=== PATIENT | female | born 1985 ===

== ENCOUNTER 2017-07-22 14:41 | Emergency (ER) | payer MEDICAID ==
[2017-07-22 14:51] VITALS: BMI 25.4
[2017-07-22 14:54] VITALS: RESP 18; O2SAT 100
[2017-07-22 16:10] LABS: HCG,QUALITATIVE URINE NEGATIVE (NEGATIVE)
[2017-07-22 16:15] LABS: SQUAMOUS EPITHIAL 2 /hpf (0-5); URINE BACTERIA OCC (<OCC); URINE BILIRUBIN NEGATIVE (NEGATIVE); URINE BLOOD 3+ (NEGATIVE); URINE CLARITY Hazy (Clear); URINE COLOR Yellow (YELLOW); URINE GLUCOSE (UA) NORMAL (Normal); URINE PROTEIN 1+ mg/dL (NEGATIVE); URINE UROBILINOGEN NORMAL mg/dL (0.2-1.0)
[2017-07-22 16:16] LABS: URINE LEUKOCYTE ESTERASE 2+ Leu/uL (Negative)
[2017-07-22] MEDS ORDERED: Sodium Chloride 0.9% 1,000 ML IV ONE (16:18)
[2017-07-22] MEDS ORDERED: Sodium Chloride 0.9% 1,000 ML ONE (16:38)
--- NOTE | 2017-07-22 16:42 | C.PDOC ---
History Of Present Illness 32 y/o female with hx GERD c/o lower abdominal cramps with menses today, that are worse much than usual. pt also c/o nausea, vomiting and diarrhea, sts she usually gets this with her menses. pt took 800 mg advil at 12 am with no decrease in pain. no fever or chills, no urinary symptoms. Time Seen by Provider: 07/22/17 15:49 Chief Complaint (Nursing): Female Genitourinary History Per: Patient History/Exam Limitations: no limitations Onset/Duration Of Symptoms: Days Quality Of Discomfort: Cramping Past Medical History Reviewed: Historical Data, Nursing Documentation, Vital Signs Vital Signs: Last Vital Signs Temp 98.3 F 07/22/17 17:23 Pulse 91 H 07/22/17 17:23 Resp 18 07/22/17 17:23 BP 109/73 07/22/17 17:23 Pulse Ox 100 07/22/17 17:23 - Medical History PMH: Anxiety, Gastritis, Kidney Stones, Chronic Kidney Disease, Chronic Pain ( neck) Surgical History: No Surg Hx - [facility] Procedures BILAT TUBAL DIVISION NEC (09/18/12) LOW CERVICAL (09/18/12) OTH LYSIS-PERITONEAL ADHES (09/18/12) Family History: States: No Known Family Hx - Social History Hx Tobacco Use: Yes Hx Alcohol Use: No Hx Substance Use: No - Immunization History Hx Tetanus Toxoid Vaccination: No Hx Influenza Vaccination: No Hx Pneumococcal Vaccination: No Review Of Systems Constitutional: Negative for: Fever, Chills Gastrointestinal: Positive for: Vomiting, Abdominal Pain, Diarrhea. Negative for: Nausea Genitourinary: Negative for: Dysuria, Hematuria Physical Exam - Physical Exam Appears: Non-toxic, No Acute Distress Skin: Warm, Dry, No Rash Head: Atraumatic, Normacephalic Eye(s): bilateral: Normal Inspection Oral Mucosa: Moist Neck: Normal ROM, Supple Cardiovascular: Rhythm Regular Respiratory: Normal Breath Sounds, No Rales, No Rhonchi, No Wheezing Gastrointestinal/Abdominal: Soft, Tenderness (low abdominal), No Guarding, No Rebound Back: No CVA Tenderness Extremity: Normal ROM, Capillary Refill (<2 seconds) Neurological/Psych: Oriented x3 ED Course And Treatment - Laboratory Results Result Diagrams: 07/22/17 16:38 07/22/17 16:38 O2 Sat by Pulse Oximetry: 100 (RA) Pulse Ox Interpretation: Normal Medical Decision Making Medical Decision Making: pt reports she is unable to stay, needs to leave ED due to childcare issues. pt advised since leaving before treatment complete, will be ama. pt understands. pt has no urinary symptoms at this time, will not treat for uti, will f/u culture. will d/c pt with bentyl and tylenol. 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 pt understands risks and consequences of leaving ama. Disposition Counseled Patient/Family Regarding: Studies Performed, Diagnosis, Need For Followup - Disposition Referrals: [facility] [Outside] Disposition: AGAINST MEDICAL ADVICE Disposition Time: 17:13 Condition: STABLE Additional Instructions: Please take medications as prescribed. Avoid advil- not good for your GERD. FOllow up with clutch specialist ([facility]) as soon as possible. Return to ER for any worsening symptoms. 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 - Scribe Statement The provider has reviewed the documentation as recorded by the Corinne Ramires All medical record entries made by the Corinne were at my direction and personally dictated by me. I have reviewed the chart and agree that the record accurately reflects my personal performance of the history, physical exam, medical decision making, and the department course for this patient. I have also personally directed, reviewed, and agree with the discharge instructions and disposition.
[2017-07-22 16:43] LABS: BASO # 0.1 K/uL (0.0-0.2); BASO % 0.7 % (0.0-2.0); EOS # 0.3 K/uL (0.0-0.7); EOS % 2.1 % (0.0-4.0); HEMOGLOBIN 12.7 g/dL (11.0-16.0); LYMPH # 2.9 K/uL (1.0-4.3); LYMPH % 20.6 % (20.0-40.0); MEAN CELL VOLUME 95.5 fL (81.0-99.0); MEAN CORPUSCULAR HEMOGLOBIN 32.8 pg (27.0-31.0); MEAN CORPUSCULAR HGB CONC 34.3 g/dL (33.0-37.0); MEAN PLATELET VOLUME 6.8 fL (7.2-11.7); MONO # 0.7 K/uL (0.0-0.8); MONO % 4.8 % (0.0-10.0); NEUT % 71.8 % (50.0-75.0); NRBC % 0.2 % (0.0-2.0); RBC 3.87 Mil/uL (3.80-5.20); RED CELL DISTRIBUTION WIDTH 13.9 % (11.5-14.5); WHITE BLOOD COUNT 13.9 K/uL (4.8-10.8)
[2017-07-22 16:53] LABS: ALB/GLOB RATIO 1.5 (1.0-2.1); ALBUMIN 4.6 g/dL (3.5-5.0); ALT/SGPT 22 U/L (9-52); AST/SGOT 19 U/L (14-36); BLOOD UREA NITROGEN 15 mg/dL (7-17); CALCIUM 8.9 mg/dl (8.6-10.4); GFR AFRICAN-AMERICAN > 60; GFR NON-AFRICAN AMERICAN > 60
[2017-07-22 17:25] VITALS: BP 109/73; PULSE 91; TEMP 98.3
== END 2017-07-22 17:25 | disposition left against medical advice (07) ==
LOC: C.ER 14:41
DX: R10.30 Lower abdominal pain, unspecified (principal); N94.6 Dysmenorrhea, unspecified
CPT/HCPCS: 80053; 81001; 84703; 85025; 87086; 96361; 96374; 96375; 99285; J2765; J7040

== ENCOUNTER 2018-05-18 19:31 | Emergency (ER) | payer MEDICAID ==
[2018-05-18 19:31] VITALS: BMI 25.4
[2018-05-18] MEDS ORDERED: Sodium Chloride 0.9% 1,000 ML IV ONE (20:46)
[2018-05-18] MEDS ORDERED: Sodium Chloride 0.9% 1,000 ML ONE (21:10)
--- NOTE | 2018-05-18 21:24 | C.PDOC ---
History Of Present Illness 33 y/o female presents to the ED complaining of colicky abdominal pain that began 30 minutes prior to arrival. Patient has had many prior evaluations for the same. Prior surgical history includes tubal ligation. Otherwise patient den ies any vaginal discharge, vaginal bleeding, fevers, chills, vomiting, or diarrhea. Time Seen by Provider: 05/18/18 20:39 Chief Complaint (Nursing): Abdominal Pain History Per: Patient History/Exam Limitations: no limitations Onset/Duration Of Symptoms: Mins (30) Current Symptoms Are (Timing): Still Present Quality Of Discomfort: Cramping Past Medical History Reviewed: Historical Data, Nursing Documentation, Vital Signs Vital Signs: Last Vital Signs Temp 98.6 F 05/18/18 19:55 Pulse 96 H 05/18/18 19:55 Resp 20 05/18/18 19:55 BP 124/73 05/18/18 19:55 Pulse Ox 95 05/18/18 19:55 - Medical History PMH: Anxiety, Gastritis, Kidney Stones, Chronic Kidney Disease, Chronic Pain (neck) - [facility] Procedures BILAT TUBAL DIVISION NEC (09/18/12) LOW CERVICAL (09/18/12) OTH LYSIS-PERITONEAL ADHES (09/18/12) Family History: States: Unknown Family Hx - Social History Hx Tobacco Use: Yes Hx Alcohol Use: No Hx Substance Use: No - Immunization History Hx Tetanus Toxoid Vaccination: No Hx Influenza Vaccination: No Hx Pneumococcal Vaccination: No Review Of Systems Constitutional: Negative for: Fever, Chills Cardiovascular: Negative for: Chest Pain Respiratory: Negative for: Shortness of Breath Gastrointestinal: Positive for: Abdominal Pain. Negative for: Vomiting, Diarrhea, Hematochezia Genitourinary: Negative for: Dysuria, Frequency, Incontinence Neurological: Negative for: Weakness, Dizziness Physical Exam - Physical Exam Appears: Non-toxic, No Acute Distress Skin: Warm, Dry Head: Atraumatic, Normacephalic Eye(s): bilateral: PERRL, EOMI, Other (Dilated pupils, denies narcotic use) Oral Mucosa: Moist Neck: Normal ROM Chest: Symmetrical Cardiovascular: Rhythm Regular, No Murmur Respiratory: Normal Breath Sounds, No Accessory Muscle Use Gastrointestinal/Abdominal: Bowel Sounds (alternatingly dull and tympanic to percussion), Soft, No Tenderness, Other (Obese abdomen) Back: Normal Inspection Extremity: Bilateral: Atraumatic, Normal Color And Temperature Pulses: Left Dorsalis Pedis: Normal, Right Dorsalis Pedis: Normal Neurological/Psych: Oriented x3 ED Course And Treatment - Laboratory Results Result Diagrams: 05/18/18 21:32 05/18/18 21:32 Lab Interpretation: Abnormal (leukocytosis not L shifted- tox + cocaine, opiates, THC) Urine POC: Negative O2 Sat by Pulse Oximetry: 95 (RA) Pulse Ox Interpretation: Normal Reevaluation Time: 23:55 Reassessment Condition: Improved Medical Decision Making Medical Decision Making: Initial Plan: --Labs --Obstructive series x-ray --IV fluids --30 mg IV Toradol abd colic due to increased intestinal gas, prob related to chronic narcotics use Leukocytosis 21K not L shifted prob related to cocaine abuse and explains pupilary mydriasis [place]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 Disposition Doctor Will See Patient In The: Office Counseled Patient/Family Regarding: Studies Performed, Diagnosis - Disposition Referrals: Alcoholics Anonymous [Outside] [facility] [Outside] [facility] [Outside] [facility] [Outside] [facility] [Outside] Disposition: HOME/ ROUTINE Disposition Time: 23:56 Condition: GOOD Additional Instructions: constipation may be related to your chronic narcotics use (Tylenol #3) Drink laxative now- bottle of Mag Citrate- and re-evaluate your abdominal discomfort after 2-3 bowel movements Consider stool softners and occasional laxatives Leukocytosis (elevated white blood cell count) probably related to your cocaine use avoid cocaine use Seek counseling/detox CT of abd/pelvic unremarkable Instructions: Constipation in Adults Forms: [employer] (Swedish) - Clinical Impression Clinical Impression: Abdominal pain, colicky - Scribe Statement The provider has reviewed the documentation as recorded by the Corinne Adam Provider Attestation: All medical record entries made by the Edithibfran were at my direction and personally dictated by me. I have reviewed the chart and agree that the record accurately reflects my personal performance of the history, physical exam, medical decision making, and the department course for this patient. I have also personally directed, reviewed, and agree with the discharge instructions and disposition.
[2018-05-18 21:40] LABS: BASO # 0.1 K/uL (0.0-0.2); BASO % 0.6 % (0.0-2.0); EOS # 0.8 K/uL (0.0-0.7); EOS % 3.8 % (0.0-4.0); HEMOGLOBIN 12.8 g/dL (11.0-16.0); LYMPH # 3.4 K/uL (1.0-4.3); LYMPH % 16.4 % (20.0-40.0); MEAN CELL VOLUME 96.1 fL (81.0-99.0); MEAN CORPUSCULAR HEMOGLOBIN 32.3 pg (27.0-31.0); MEAN CORPUSCULAR HGB CONC 33.6 g/dL (33.0-37.0); MEAN PLATELET VOLUME 7.2 fL (7.2-11.7); MONO # 1.1 K/uL (0.0-0.8); MONO % 5.2 % (0.0-10.0); NEUT # 15.5 K/uL (1.8-7.0); RBC 3.96 Mil/uL (3.80-5.20); RED CELL DISTRIBUTION WIDTH 13.1 % (11.5-14.5)
[2018-05-18 21:49] LABS: ALB/GLOB RATIO 1.5 (1.0-2.1); ALBUMIN 4.9 g/dL (3.5-5.0); ALT/SGPT 12 U/L (9-52); AST/SGOT 19 U/L (14-36); BLOOD UREA NITROGEN 10 mg/dL (7-17); CALCIUM 9.4 mg/dl (8.6-10.4); GFR NON-AFRICAN AMERICAN > 60; LIPASE 114 U/L (23-300)
[2018-05-18 21:55] LABS: BARBITURATES, UR NEGATIVE (NEGATIVE); PHENCYCLIDINE, UR NEGATIVE (NEGATIVE)
[2018-05-18 21:56] LABS: SQUAMOUS EPITHIAL 2 /hpf (0-5); URINE BACTERIA RARE (<OCC); URINE BILIRUBIN NEGATIVE (NEGATIVE); URINE BLOOD NEGATIVE (NEGATIVE); URINE CLARITY Clear (Clear); URINE COLOR Yellow (YELLOW); URINE GLUCOSE (UA) NORMAL (Normal); URINE LEUKOCYTE ESTERASE NEG Leu/uL (Negative); URINE PROTEIN NEGATIVE (NEGATIVE); URINE UROBILINOGEN NORMAL mg/dL (0.2-1.0)
[2018-05-18 21:57] LABS: BENZODIAZEPINES, UR POSITIVE (NEGATIVE); HCG,QUALITATIVE URINE NEGATIVE (NEGATIVE); OPIATES, UR POSITIVE (NEGATIVE)
[2018-05-18] MEDS ORDERED: Iohexol 300 100 ML IJ ONE (22:31)
[2018-05-18] MEDS ORDERED: Magnesium Citrate Oral SOL (300 ml) PO ONE (23:59)
[2018-05-19] MEDS ORDERED: Magnesium Citrate Oral SOL (300 ml) ONE (00:17)
[2018-05-19 00:18] VITALS: BP 114/74; PULSE 78; RESP 17; TEMP 98.2; O2SAT 98
--- NOTE | 2018-05-19 08:17 | RAD ---
Date of service: 05/18/2018 PROCEDURE: Radiographs of the chest and abdomen (obstructive series) HISTORY: abd pain COMPARISON: No prior. TECHNIQUE: AP radiograph of the chest, with upright and supine radiographs of the abdomen. FINDINGS: CHEST: Lungs: Clear. Cardiovascular: Normal size heart. No pulmonary vascular congestion. No aortic atherosclerotic calcification present Pleura: No pleural fluid. No pneumothorax. Other findings: None. ABDOMEN AND PELVIS: Bowel: Right colonic stool retention present. Some of the left upper abdominal quadrant colon loops are intermittently more distended than typically seen. However. No evidence of mechanical obstruction. Free air: None. Bones: This amorphous sclerosis of each SI joint border noted Other findings: Bilateral hemipelvic phleboliths. IMPRESSION: No pulmonary infiltrate. No mechanical bowel obstruction. Pockets of minimally prominent splenic colon loops-not constant on all of the images. Right sided cyst stool retention. Other findings as above.
--- NOTE | 2018-05-19 09:19 | CT ---
CT abdomen and pelvis HISTORY: Abdominal pain. COMPARISON: None available. TECHNIQUE: Multiple contiguous axial images were performed through the abdomen and pelvis with the use of intravenous contrast. Subsequently, sagittal and coronal reformatted images were obtained. This CT exam was performed using one or more of the following dose reduction techniques: Automated exposure control, adjustment of the mA and/or kV according to patient size, and/or use of iterative reconstruction technique. Findings: Mild atelectasis at the lung bases. No pleural or pericardial effusion. Liver and gallbladder are preserved. Spleen is preserved. Adrenal glands are preserved. Pancreas is preserved. Upper abdominal bowel is preserved. Right kidney: No calculi or hydronephrosis. Left Kidney: No calculi or hydronephrosis. Urinary bladder is preserved. Heterogeneous uterus. Prominence of the left adnexa measuring up to 3.4 centimeters with enhancing cyst measuring 1.7 centimeters. Under distended descending colon. Fecal retention in the right hemicolon. Appendix is within normal limits. Few shotty para-aortic and inguinal nodes. Few shotty mesenteric lymph nodes. Degenerative changes in the spine. Tiny fat containing umbilical hernia. Impression: Negative acute. Prominence of the left adnexa measuring up to 3.4 centimeters. Clinical correlation. Appendix appears preserved. A preliminary report was generated at 11:26 p.m. on 05/18/[address] Nahid Ferrara from [employer].
== END 2018-05-19 00:17 | disposition home or self-care (01) ==
LOC: C.ER 19:31
DX: R10.84 Generalized abdominal pain (principal)
CPT/HCPCS: 74022; 74177; 80053; 80320; 80324; 80345; 80346; 80349; 80353; 80358; 80361; 81001; 83690; 83992; 84703; 85025; 96361; 96374; 99284; J1885; J7030; Q9967

== ENCOUNTER 2018-07-02 00:25 | Emergency (ER) | payer MEDICAID ==
[2018-07-02 00:25] VITALS: BMI 25.4
--- NOTE | 2018-07-02 01:09 | C.PDOC ---
History Of Present Illness 33 year old female presents with fever, body aches, runny nose, nonproductive cough, and sore throat since yesterday night. Patient has an appointment scheduled in the morning with her PMD Dr. Fabio Jain. She reports taking motrin 600 at home and fever wound not go down. Denies chest pain, SOB, nausea, vomiting, or diarrhea. Time Seen by Provider: 07/02/18 00:44 Chief Complaint (Nursing): Cough, Cold, Congestion History Per: Patient History/Exam Limitations: no limitations Onset/Duration Of Symptoms: Hrs Current Symptoms Are (Timing): Still Present Location Of Pain: Throat, Diffuse Myalgias Sick Contacts (Context): None Associated Symptoms: Fever, Sore Throat, Cough, Sinus Drainage, Myalgias Ear Symptoms: Bilateral: None Recent travel outside of the [place]: No Past Medical History Reviewed: Historical Data, Nursing Documentation, Vital Signs Vital Signs: Last Vital Signs Temp 100.3 F H 07/02/18 00:32 Pulse 117 H 07/02/18 00:32 Resp 22 07/02/18 00:32 BP 134/89 07/02/18 00:32 Pulse Ox 96 07/02/18 00:32 - Medical History PMH: Anxiety, Gastritis, Kidney Stones, Chronic Kidney Disease, Chronic Pain (neck) - [facility] Procedures BILAT TUBAL DIVISION NEC (09/18/12) LOW CERVICAL (09/18/12) OTH LYSIS-PERITONEAL ADHES (09/18/12) Family History: States: Unknown Family Hx - Social History Hx Tobacco Use: Yes Hx Alcohol Use: No Hx Substance Use: No - Immunization History Hx Tetanus Toxoid Vaccination: No Hx Influenza Vaccination: No Hx Pneumococcal Vaccination: No Review Of Systems Except As Marked, All Systems Reviewed And Found Negative. Constitutional: Positive for: Fever ENT: Positive for: Nose Discharge, Throat Pain Respiratory: Positive for: Cough Musculoskeletal: Positive for: Other (Body aches) Physical Exam - Physical Exam Appears: Non-toxic, Other (Uncomfortable, intermittent cough, speaking in complete sentences) Skin: Normal Color, Other (Warm to touch) Head: Atraumatic, Normacephalic Eye(s): bilateral: Normal Inspection Ear(s): Bilateral: Other (Erythema to canal, TM normal) Nose: Normal Oral Mucosa: Moist Throat: Erythema, No Exudate, No Other (Tonsil swelling) Neck: Normal, Supple Chest: Symmetrical, No Tenderness Cardiovascular: Rhythm Regular Respiratory: Normal Breath Sounds, No Rales, No Rhonchi, No Wheezing Gastrointestinal/Abdominal: Soft, No Tenderness Back: No CVA Tenderness Neurological/Psych: Oriented x3, Normal Speech ED Course And Treatment O2 Sat by Pulse Oximetry: 96 (Room air) Pulse Ox Interpretation: Normal Progress Note: Tessalon perles and toradol administered. Disposition Counseled Patient/Family Regarding: Diagnosis, Need For Followup, Rx Given - Disposition Referrals: Lashell Christensen MD [Staff Provider] - Disposition: HOME/ ROUTINE Disposition Time: 13:30 Condition: STABLE Additional Instructions: FOLLOW UP WITH YOUR DOCTOR SCHEDULED USE MEDICATIONS DIRECTED DRINK PLENTY OF FLUIDS RETURN TO ER IF SYMPTOMS WORSEN Prescriptions: Benzonatate [Tessalon Perles] 100 mg PO BID PRN #15 sgl PRN Reason: Cough Naproxen [Naprosyn] 1 tab PO BID PRN #25 tab PRN Reason: Pain Oseltamivir Phosphate [Tamiflu] 75 mg PO BID #10 capsule Instructions: Influenza (ED) Forms: [employer] (Taiwanese) Print Language: FAROESE - Clinical Impression Clinical Impression: Influenza-like illness - Scribe Statement The provider has reviewed the documentation as recorded by the Scribfran Michelle All medical record entries made by the Scribe were at my direction and personally dictated by me. I have reviewed the chart and agree that the record accurately reflects my personal performance of the history, physical exam, medical decision making, and the department course for this patient. I have also personally directed, reviewed, and agree with the discharge instructions and disposition.
[2018-07-02 01:21] VITALS: BP 120/70; PULSE 88; RESP 16; TEMP 99.9
[2018-07-02 04:35] VITALS: O2SAT 96
== END 2018-07-02 01:21 | disposition home or self-care (01) ==
LOC: C.ER 00:25
DX: J11.1 Influenza due to unidentified influenza virus with other respiratory manifestations (principal)
CPT/HCPCS: 96372; 99283; J1885